=== PATIENT | male | born 1950 | race Caucasian/White ===

== ENCOUNTER 2019-05-30 06:48 | Day surgery (SDC) | payer BC, MEDICARE ==
[2019-05-30] MEDS ORDERED: Midazolam 1 MG/ML 2 ML SDV ONE (07:16)
[2019-05-30] MEDS ORDERED: Propofol 200 MG/20 ML SDV ONE (07:16)
[2019-05-30] MEDS ORDERED: fentaNYL 100 MCG/2 ML SDV ONE (07:16)
[2019-05-30] MEDS ORDERED: Sodium Chloride 0.9% 1,000 ML IV SCH (07:45)
--- NOTE | 2019-05-30 13:51 | PROC ---
DATE OF PROCEDURE: 05/30/2019 SURGEON: Rickie Ríos MD PROCEDURE: Colonoscopy. PREPROCEDURE DIAGNOSIS: History of colon polyps. POSTPROCEDURE DIAGNOSES: 1. History of colon polyps. 2. Rectal polyp, removed using snare cautery. DESCRIPTION OF PROCEDURE: Risks and goals of the procedure reviewed with the patient, who gave informed consent to proceed. He was brought back to the endoscopy room. Sedation monitoring provided by Janna from the Anesthesia Service. Time-out was held prior to the procedure to confirm right patient, right site, right procedure, as well as to identify any concerns concerning the procedure, of which there were none. He was placed in a left lateral decubitus position. After adequate sedation was achieved, digital rectal exam was performed, which was unremarkable. Following this, a flexible colonoscope was placed and advanced out through the colon to the cecum. Cecum was identified based on the appendiceal orifice and ileocecal valve. The colonoscope was then slowly withdrawn through the length of the colon and into the rectum where it was retroflexed, straightened, and removed. There was a 0.4 cm polyp noted in the rectum, which was removed using snare cautery. No other significant mucosal polyps, masses, or lesions were seen and the procedure was otherwise completed without complication. He will be monitored in [facility] in outpatient area until fully recovered from IV sedation and discharged to home. Pathologic review of the biopsy specimen is pending at the time of this dictation. Rickie Ríos MD /[id number]
--- NOTE | 2019-06-09 14:09 | LETTER ---
06/09/2019 Everette Wong [id number] [address] RE: EVERETTE WONG : 1950 Dear Mr. Wong: This letter is in regard to pathology results from the polyp removed at the time of your colonoscopy last week. 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 This is a benign polyp or noncancerous, but it is the type that over several years can evolve into a colon cancer. For this reason, I recommend that you have a followup colonoscopy in 3 years. If you have any questions concerning this result or recommendation, please feel free to contact me. Sincerely, /[id number]
== END 2019-05-30 10:03 | disposition home or self-care (01) ==
LOC: JP.SDS 06:48
PROVIDERS: ATTEND Hospitalist
DX: Z12.11 Encounter for screening for malignant neoplasm of colon (principal); D12.8 Benign neoplasm of rectum; I10 Essential (primary) hypertension; Z86.010 Personal history of colon polyps
CPT/HCPCS: 45385; J2250; J2704; J3010; J7030; 88305

== ENCOUNTER 2021-10-12 11:29 | Emergency (ER) | payer MEDICARE ==
[2021-10-12] MEDS: Bacitracin Oint 1 GM U/D Packet TOP ONE (13:17)
== END 2021-10-12 13:35 | disposition home or self-care (01) ==
LOC: JP.ED 11:29
DX: S91.101A Unspecified open wound of right great toe without damage to nail, initial encounter (principal); L03.031 Cellulitis of right toe; E78.00 Pure hypercholesterolemia, unspecified; I10 Essential (primary) hypertension; Z88.8 Allergy status to other drugs, medicaments and biological substances; Z87.891 Personal history of nicotine dependence
CPT/HCPCS: 99283

== ENCOUNTER 2022-04-14 07:22 | Day surgery (SDC) | payer MEDICARE ==
[2022-04-14] MEDS ORDERED: Acetaminophen 500 MG Tab PO ONE (07:30)
[2022-04-14] MEDS ORDERED: fentaNYL 100 MCG/2 ML SDV ONE (07:33)
[2022-04-14] MEDS ORDERED: Midazolam 1 MG/ML 2 ML SDV ONE (07:33)
[2022-04-14] MEDS ORDERED: Propofol 200 MG/20 ML SDV ONE (07:33)
[2022-04-14] MEDS ORDERED: Lactated Ringers 1,000 ML IV SCH (08:00)
[2022-04-14] MEDS ORDERED: Lidocaine 1% with EPINEPHrine 1:100,000 50 ML MDV ONE (09:05)
== END 2022-04-14 11:05 | disposition home or self-care (01) ==
LOC: JP.SDS 07:22
PROVIDERS: ATTEND Student in an Organized Health Care Education/Training Program
DX: L82.1 Other seborrheic keratosis (principal); I10 Essential (primary) hypertension; E78.1 Pure hyperglyceridemia; E55.9 Vitamin D deficiency, unspecified; M10.9 Gout, unspecified; Z79.899 Other long term (current) drug therapy; Z87.891 Personal history of nicotine dependence; Z88.6 Allergy status to analgesic agent
CPT/HCPCS: 11421; 88305; A9270; J2250; J2704; J3010; J7120

== ENCOUNTER 2023-09-10 07:30 | Day surgery (SDC) | payer MEDICARE ==
[2023-09-10] MEDS ORDERED: Propofol 200 MG/20 ML SDV ONE (08:15)
[2023-09-10] MEDS ORDERED: fentaNYL 50 MCG/ML SDV ONE (08:15)
[2023-09-10] MEDS: Sodium Chloride 0.9% 1,000 ML IV SCH (08:23)
== END 2023-09-10 10:08 | disposition home or self-care (01) ==
LOC: JP.SDS 07:30
PROVIDERS: ATTEND Surgery
DX: K22.70 Barrett's esophagus without dysplasia (principal); K22.89 Other specified disease of esophagus
CPT/HCPCS: 43239; J2704; J3010; J7030

== ENCOUNTER 2024-07-21 07:26 | Day surgery (SDC) | payer MEDICARE, BC ==
[~2024-07-21 07:26] MED LIST: Propofol 200 MG/20 ML SDV ONE; fentaNYL 100 MCG/2 ML SDV ONE
[2024-07-21] MEDS: Lactated Ringers 1,000 ML IV SCH (07:46)
[2024-07-21] MEDS ORDERED: Propofol 200 MG/20 ML SDV ONE (08:37)
[2024-07-21] MEDS: Alum Hydrox/Mag Hydrox/Simeth 360 ML, Lidocaine 2% 60 ML PO PRN (10:13)
== END 2024-07-21 10:35 | disposition home or self-care (01) ==
LOC: JP.SDS 07:26
PROVIDERS: ATTEND Surgery
DX: K22.70 Barrett's esophagus without dysplasia (principal); I10 Essential (primary) hypertension; F17.200 Nicotine dependence, unspecified, uncomplicated; Z88.6 Allergy status to analgesic agent; Z80.0 Family history of malignant neoplasm of digestive organs
CPT/HCPCS: 43270; A9270; C1713; C1886; J2704; J3010; J7120; 00731-QZ

== ENCOUNTER 2024-10-24 06:38 | Day surgery (SDC) | payer MEDICARE, BC ==
[2024-10-24] MEDS: Lactated Ringers 1,000 ML IV SCH (07:27)
[2024-10-24] MEDS ORDERED: fentaNYL 100 MCG/2 ML SDV ONE (07:28)
[2024-10-24] MEDS ORDERED: Propofol 200 MG/20 ML SDV ONE ×2 (07:28→08:05)
[2024-10-24] MEDS ORDERED: Alum Hydrox/Mag Hydrox/Simeth 360 ML, Lidocaine 2% 60 ML PO PRN (07:40)
== END 2024-10-24 09:05 | disposition home or self-care (01) ==
LOC: JP.SDS 06:38
PROVIDERS: ATTEND Surgery
DX: K22.70 Barrett's esophagus without dysplasia (principal); I10 Essential (primary) hypertension; Z88.1 Allergy status to other antibiotic agents
CPT/HCPCS: 43270; C1713; C1886; J2704; J3010; J7120; 00731-QZ

== ENCOUNTER 2025-01-18 08:13 | Day surgery (SDC) | payer MEDICARE, BC ==
[2025-01-18] MEDS: Lactated Ringers 1,000 ML IV SCH (09:22)
[2025-01-18] MEDS ORDERED: Propofol 200 MG/20 ML SDV ONE (10:56)
[2025-01-18] MEDS ORDERED: fentaNYL 50 MCG/ML SDV ONE (10:57)
== END 2025-01-18 13:02 | disposition home or self-care (01) ==
LOC: JP.SDS 08:13
PROVIDERS: ATTEND Surgery
DX: K22.70 Barrett's esophagus without dysplasia (principal); I12.9 Hypertensive chronic kidney disease with stage 1 through stage 4 chronic kidney disease, or unspecified chronic kidney disease; N18.9 Chronic kidney disease, unspecified; E78.00 Pure hypercholesterolemia, unspecified; K21.9 Gastro-esophageal reflux disease without esophagitis; Z88.6 Allergy status to analgesic agent; Z79.899 Other long term (current) drug therapy
CPT/HCPCS: 00731; 43270; C1713; C1886; J2704; J3010; J7120